=== PATIENT | male | born 1985 | race Caucasian/White ===

== ENCOUNTER 2018-04-03 00:29 | Emergency (ER) | payer SELFPAY ==
[~2018-04-03] VITALS: Ht 180.3 cm; Wt 95.3 kg
[2018-04-03 00:53] VITALS: Ht 180.3 cm; Wt 95.3 kg
[2018-04-03 02:22] LABS: CALCIUM 8.4 mg/dL (8.5-10.1); CARBON DIOXIDE 25.3 mmol/L (21-32); CHLORIDE SERUM 107 mmol/L (98-107); CREATININE SERUM 0.9 mg/dL (0.7-1.3); GFR1 > 60 mL/min; GLUCOSE SERUM 95 mg/dL (74-106); POTASSIUM SERUM 3.9 mmol/L (3.5-5.1); SODIUM SERUM 142 mmol/L (136-145)
[2018-04-03 02:28] LABS: ALBUMIN 4.3 g/dL (3.4-5.0); ALKALINE PHOSPHATASE 81 U/L (46-116); ALT/SGPT 53 U/L (16-63); AST/SGOT 35 U/L (15-37); BASOPHIL % 0.4 % (0-2); BILIRUBIN TOTAL 0.5 mg/dL (0.20-1.00); PLATELET COUNT 237 x10^3mcL (130-400); RED CELL DISTRIBUTION WIDTH 12.9 % (11.5-14.5)
[2018-04-03 02:32] LABS: TOTAL PROTEIN, SERUM 8.3 g/dL (6.4-8.2)
[2018-04-03 07:19] VITALS: BP 143/105
== END 2018-04-03 07:19 | disposition short-term general hospital (02) ==
LOC: ED 00:29
PROVIDERS: Emergency Medicine
DX: S02.31XA Fracture of orbital floor, right side, initial encounter for closed fracture (principal); G58.8 Other specified mononeuropathies; J45.909 Unspecified asthma, uncomplicated; V49.9XXA Car occupant (driver) (passenger) injured in unspecified traffic accident, initial encounter; Y93.I9 Activity, other involving external motion; Y92.488 Other paved roadways as the place of occurrence of the external cause; Y99.8 Other external cause status
CPT/HCPCS: 90715; G0480; J1956; J2270; J2405; Q9967